=== PATIENT | female | born 1995 ===

== ENCOUNTER 2017-07-06 13:01 | Emergency (ER) | payer OTHER ==
[~2017-07-06] VITALS: Ht 154.9 cm; Wt 52.2 kg
--- NOTE | 2017-07-06 13:14 | ER Report ---
History and Physical Time Seen By MD: 13:13 Hx. of Stated Complaint: PT CRASHED ON SNOWBOARD AND CAUGHT SELF WITH RIGHT WRIST. DENIES HITING HEAD OR LOC. HPI/ROS CHIEF COMPLAINT: Right wrist pain HISTORY OF PRESENT ILLNESS: Otherwise healthy 21 no female had a fall while snowboarding at 3 backwards onto an outstretched wrist into the distal radius with some obvious deformity neurovascular intact no head or neck trauma no additional complaints noted REVIEW OF SYSTEMS: Respiratory: No cough, no dyspnea. Cardiovascular: No chest pain, no palpitations. Gastrointestinal: No vomiting, no abdominal pain. Musculoskeletal: Right wrist pain Remainder of the 14 system rev: Yes Allergies: Coded Allergies: No Known Drug Allergies (Unverified , 07/06/17) Home Meds Active Scripts Hydrocodone Bit/Acetaminophen (NORCO 5-325 TABLET) 1 Each Tablet, 1 EACH PO 2- 4XD for 10 Days, #14 TAB Prov:RONI CAMARENA MD 07/07/17 Reviewed Nurses Notes: Yes Old Medical Records Reviewed: Yes Constitutional Vital Sign - Last 24 Hours 07/06/17 07/06/17 07/06/17 07/06/17 13:05 13:46 13:55 14:00 Temp 97.8 Pulse 101 116 Resp 14 B/P (MAP) 110/80 110/75 (87) 123/84 (97) Pulse Ox 98 98 O2 Delivery Room Air 07/06/17 07/06/17 07/06/17 07/06/17 14:01 14:05 14:10 14:15 Pulse 120 Resp 23 B/P (MAP) 102/77 (85) 110/76 (87) 112/81 (91) Pulse Ox 100 07/06/17 07/06/17 07/06/17 07/06/17 14:16 14:20 14:25 14:30 Pulse 96 Resp 19 B/P (MAP) 113/79 (90) 116/82 (93) 118/75 (89) Pulse Ox 100 07/06/17 07/06/17 14:31 14:34 Pulse 103 B/P (MAP) 111/81 (91) Pulse Ox 96 Physical Exam General appearance: [Alert no distress.] Respiratory: Chest is non tender, lungs are clear to auscultation. Cardiac: Regular rate and rhythm [ ] Right wrist examination the right wrist demonstrates a Colles' deformity neurovascular intact decreased range of motion of the 4 fingers pain with extension flexion rotation and palpation neurovascular intact DIFFERENTIAL DIAGNOSIS: After history and physical exam differential diagnosis was considered for wrist fracture Medical Decision Making ED Course/Re-evaluation ED Course ED clinical course medical decision making Procedural note Conscious sedation patient was sedated with a total of 8 mL of propofol followed by 2 mL with good twilight sedation while under sedation after timeout was taken right wrist reduction with traction and countertraction reducing the distal fragment of the radius bone into proper alignment confirmed by post x- ray splint was placed neurovascularly intact patient tolerated procedure well put in an arm splint. Decision to Disposition Date: Jul 06, 2017 Decision to Disposition Time: 14:22 Depart Departure Latest Vital Signs Vital Signs Date Time Temp Pulse Resp B/P (MAP) Pulse Ox O2 Delivery O2 Flow Rate FiO2 07/06/17 14:34 111/81 (91) 07/06/17 14:31 103 96 07/06/17 14:16 19 07/06/17 13:05 97.8 Room Air Impression: Primary Impression: Wrist fracture, right Condition: Improved Disposition: HOME OR SELF-CARE Referrals: RENA URBINA MD 5 Days New Scripts Hydrocodone Bit/Acetaminophen (NORCO 5-325 TABLET) 1 Each Tablet 1 EACH PO 2-4XD for PAIN for 7 Days, #20 TAB Prov: RONI CAMARENA MD 07/07/17 Hydrocodone Bit/Acetaminophen (NORCO 5-325 TABLET) 1 Each Tablet 1 EACH PO 2-4XD for 10 Days, #14 TAB Prov: RONI CAMARENA MD 07/07/17 Patient Instructions: Wrist Fracture in Adults (DC) RONI CAMARENA MD Jul 06, 2017 13:14
--- NOTE | 2017-07-06 13:32 | RADIOLOGY IMAGING REPORT ---
FACILITY: [facility] PATIENT NAME: Akiko Cardenas : 1995 MR: [id number] V: [id number] EXAM DATE: ORDERING PHYSICIAN: RONI CAMARENA TECHNOLOGIST: Location: [facility] - [place] Patient: Akiko Cardenas : 1995 Visit/Account:[id number] Date of Sevice: 07/06/2017 WRIST RIGHT 2 VIEW History: Right wrist fracture that occurred while snowboarding. Comparison study: None. Findings: There is a comminuted and impacted fracture of the distal right radius with angulation suc h that the vertex points in a ventral direction and dorsal displacement of the distal fracture fragme nt. There is a subtle avulsion fracture of the ulnar styloid process. IMPRESSION: 1. Distal radial fracture with comminution, impaction and dorsal displacement as well as ventral angulation. 2. Subtle avulsion fracture of the ulnar styloid process without significant distraction of the frac ture fragment. Report Dictated By: Carrington Maki MD at 07/06/2017 1:27 PM Report E-Signed By: Carrington Maki MD at 07/06/2017 1:28 PM WSN:[id number]
[2017-07-06] MEDS ORDERED: PROPOFOL(*)1000 MG/100 ML VIAL 100 ML IV PRN (13:55)
[2017-07-06] MEDS ORDERED: NS(*) 0.9% 500 ML BAG 500 ML ONE (13:59)
[2017-07-06 14:34] VITALS: BP 111/81
--- NOTE | 2017-07-06 14:38 | RADIOLOGY IMAGING REPORT ---
FACILITY: [facility] [place] PATIENT NAME: Akiko Cardenas : 1995 MR: [id number] V: [id number] EXAM DATE: ORDERING PHYSICIAN: RONI CAMARNEA TECHNOLOGIST: Location: [facility] [place] Patient: Akiko Cardenas : 1995 Visit/Account:[id number] Date of Sevice: 07/06/2017 WRIST RIGHT 2 VIEW Indication: Postreduction of distal radial fracture. Comparison: X-ray done earlier in the day. Findings: AP and lateral view of the right forearm shows post reduction of the distal radial fracture with marilyn omic alignment. Nondisplaced avulsion fracture the distal ulnar styloid is unchanged. No acute abnorm ality. The volar splint is in place. Soft tissues show no radiopaque foreign body. IMPRESSION: 1. Post reduction of the distal right radial fracture with anatomic alignment. Report Dictated By: Luis A Pearson at 07/06/2017 2:31 PM Report E-Signed By: Luis A Pearson at 07/06/2017 2:33 PM WSN:[id number]
[2017-07-07] MEDS ORDERED: HYDR-4309 PO ×2 (10:01→10:03)
== END 2017-07-06 14:45 | disposition home or self-care (01) ==
LOC: ER 13:09
DX: S52.501A Unspecified fracture of the lower end of right radius, initial encounter for closed fracture (principal); S52.614A Nondisplaced fracture of right ulna styloid process, initial encounter for closed fracture; V00.311A Fall from snowboard, initial encounter; Y93.23 Activity, snow (alpine) (downhill) skiing, snowboarding, sledding, tobogganing and snow tubing
CPT/HCPCS: 25605; 73100; 96360; 99152; 99284; A4565; J2704; J7040